=== PATIENT | female | born 1945 | race Caucasian/White ===

== ENCOUNTER 2019-01-05 12:11 | Emergency (ER) | payer MEDICARE, OTHER ==
[2019-01-05] MEDS ORDERED: Acetaminophen 500 MG TAB ONE (12:42)
[2019-01-05 13:02] LABS: #Basophils 0.1 thou/uL (0.0-0.2); #Lymphocytes 1.6 thou/uL (1.20-3.40); #Monocytes 0.7 thou/uL (0.11-0.59); %Basophils 0.7 % (0.0-1.0); %Eosinophils 0.4 % (0.0-10.0); %Lymphocytes 17.3 % (21.0-51.0); %Monocytes 7.1 % (0.0-10.0); %Neutrophils 74.6 % (42.0-75.0); Hemoglobin 12.1 g/dL (12.0-16.0); Mean Corpuscular HGB CONC 32.8 g/dL (32.0-36.0); Mean Corpuscular Hemoglobin 30.9 pg (27.0-31.0); Mean Corpuscular Volume 94.3 fL (78.0-98.0); Mean Platelet Volume 8.7 fL (7.4-10.4); Platelet Count 197 thou/uL (130-400); White Blood Cell (WBC) Count 9.3 thou/uL (4.8-10.8)
--- NOTE | 2019-01-05 13:13 | ULT ---
ULTRASOUND DOPPLER DUPLEX VENOUS RIGHT LOWER EXTREMITY: DATE: 01/05/2019 HISTORY: 73-year-old female with right lower extremity pain TECHNIQUE: Grayscale, color-flow, and spectral analysis, of major veins of right lower extremity. FINDINGS: There is demonstration of blood flow with normal compressibility, of the right common femoral, profun da femoral, greater saphenous, femoral, popliteal, and posterior tibial, veins. IMPRESSION: Negative. No deep venous thrombosis of right lower extremity.
[2019-01-05 13:16] LABS: ALT (SGPT) 20 U/L (8-55); AST (SGOT) 17 U/L (5-34); Alkaline Phosphatase 46 U/L (40-110); Anion Gap 14 mmol/L (10-20); BUN (Urea Nitrogen) 19 mg/dL (9.8-20.1); Bilirubin, Total 0.4 mg/dL (0.2-1.2); Calc. Creatinine Clearance 0 mL/min (70-130); Calcium 9.2 mg/dL (7.8-10.44); Carbon Dioxide 24 mmol/L (23-31); Chloride 107 mmol/L (98-107); Estimated GFR-MDRD 70; Globulin 2.4 g/dL (2.4-3.5); Glucose 159 mg/dL (83-110); Lipase 25 U/L (8-78); Potassium 4.3 mmol/L (3.5-5.1); Protein, Total 6.4 g/dL (6.0-8.3); Sodium 141 mmol/L (136-145)
[2019-01-05] MEDS ORDERED: Ketorolac Tromethamine 30 MG/ML VIAL ONE (14:13)
[2019-01-05 14:17] LABS: Bilirubin Negative (Negative); Blood, Urine Negative (Negative); Clarity Clear (Clear); Glucose, Urine (Dipstick) Negative (Negative); Leukocyte Negative (Negative); Nitrite Negative (Negative); Protein, Urine (Dipstick) Negative (Neg-Trace); Urobilinogen 0.2 mg/dL (Less than 2)
--- NOTE | 2019-01-05 15:38 | CT ---
CT PELVIS PERFORMED WITH IV CONTRAST ENHANCEMENT: Date: 01/05/19 HISTORY: Right lower quadrant abdomen and inguinal pain, pain to right hip, with constant right hip pain. Pain also in inner thigh region. FINDINGS: Partially visualized cyst is seen involving the lower pole of the left kidney. Appendix region is unr emarkable. A definite appendix is not identified. No inflammatory change in this region. No signs of any pelvic lymphadenopathy or mass. No free fluid. There are arthritic changes of both hips. Pelvic ring is intact. No signs of any insufficiency type f ractures. No soft tissue abnormalities in the region of the right hip. IMPRESSION: No acute findings of the pelvis. POS: [facility]
== END 2019-01-05 14:38 | disposition home or self-care (01) ==
LOC: SCSER 12:11
DX: M25.551 Pain in right hip (principal)
CPT/HCPCS: 36415; 72193; 80053; 81003; 83690; 85025; 96374; J1885

== ENCOUNTER 2019-01-12 08:57 | Inpatient (IN) | payer MEDICARE, OTHER ==
--- NOTE | 2019-01-12 09:38 | RAD ---
XR Hip Rt 2-3 View HISTORY: Right hip pain FINDINGS: No fracture or dislocation is identified. Mild degenerative changes are present.
[2019-01-12] MEDS ORDERED: Lorazepam 2 MG/ML VIAL ONE (10:22)
[2019-01-12] MEDS ORDERED: Fentanyl 100 MCG/2 ML VIAL ONE (10:22)
[2019-01-12 10:54] LABS: #Basophils 0.1 thou/uL (0.0-0.2); #Eosinphils 0.1 thou/uL (0.0-0.7); #Lymphocytes 1.8 thou/uL (1.20-3.40); %Basophils 0.8 % (0.0-1.0); %Eosinophils 1.4 % (0.0-10.0); %Lymphocytes 17.6 % (21.0-51.0); %Monocytes 9.8 % (0.0-10.0); %Neutrophils 70.5 % (42.0-75.0); Hemoglobin 13.8 g/dL (12.0-16.0); Mean Corpuscular HGB CONC 34.3 g/dL (32.0-36.0); Mean Corpuscular Hemoglobin 32.1 pg (27.0-31.0); Mean Corpuscular Volume 93.7 fL (78.0-98.0); Mean Platelet Volume 7.6 fL (7.4-10.4); Platelet Count 225 thou/uL (130-400); RBC Distribution Width 12.5 % (11.5-14.5); Red Blood Cell (RBC) Count 4.31 mill/uL (4.20-5.40); White Blood Cell (WBC) Count 9.9 thou/uL (4.8-10.8)
--- NOTE | 2019-01-12 11:00 | CT ---
CT lumbar spine noncontrast: DATE: 01/12/2019 HISTORY: 73-year-old female with low back pain and nontraumatic right lumbar radiculopathy. COMPARISON: None FINDINGS: There is an approximately 4 x 3.5 x 3.5 cm left renal lower pole cyst. No mass, edema, or hematoma in the perivertebral spaces. Vertebral body heights are maintained. For the purposes of this report, the level with bilaterally sm all, accessory ribs will be designated as L1, such that the last lumbar-type vertebra will be designated as L5. Mild left lateral convexly of curvature. T12-L1: Normal. L1-2: Normal. L2-3: Disc space maintained. Mild diffuse disc bulge plus superimposed small central disc protrusion which indents the thecal sac. No high-grade central spinal canal stenosis. Mild thecal sac stenosis. No significant neural foraminal stenosis. No high-grade facet DJD. L3-4: Moderate to severe disc space narrowing. Endplate sclerosis. Right-sided disc space narrowing w ith numerous tiny right-sided subcortical lucencies. Broad-based disc-osteophytic bar complex indents the ventral aspect of thecal sac. Mild to moderate calcified ligamentum flavum. Mild bilatera l facet DJD. Mild right neural foraminal stenosis. No left neural foraminal stenosis. Mild central spinal canal stenosis. Mild to moderate thecal sac stenosis. L4-5: Moderate-severe bilateral facet DJD causes grade 1 anterolisthesis of L4 on L5. Mild diffuse di sc bulge. Mild to moderate bilateral neural foraminal stenosis. Moderate ligamentum flavum thickening with calcification. Severe central spinal canal stenosis and severe thecal sac stenosis. H igh-grade lateral recess stenosis bilaterally. L5-S1: Disc space maintained. Moderate to severe bilateral facet DJD. In addition to a a broad-based central and bilateral paracentral moderately shallow disc herniation, there is a right lateral focal disc extrusion with superior migration of the extruded disc material up to the pedicle level of L5. This extruded disc fragment measures approximately approximately 9 x 6 x 11 mm. Along its coarse, it compresses and laterally displaces the right L5 nerve root. The broad-based disc herniatio n abuts and possibly posteriorly slightly displaces the bilateral S1 nerve roots. No high-grade central stenosis. Mild to moderate bilateral neural foraminal stenosis. There is fat stranding consis tent with edema in the right neural foramen, around the exiting right L5 nerve root there. IMPRESSION: 1. At L5-S1 there is a moderately large right paracentral-lateral extruded disc herniation with super ior migration of the extruded disc material, impinging on the right L5 nerve root along several centimeters of its course. 2. Grade 1 spondylolisthesis at L4-5 due to high-grade bilateral facet osteoarthrosis at that level. 3. Lumbar spondylosis, with high-grade degenerative disc disease at L3-4 and L4-5; and high-grade fac et osteoarthrosis at L4-5 and L5-S1. 4. Severe central spinal canal stenosis at L4-5.
[2019-01-12] MEDS ORDERED: Bisacodyl 5 MG TAB PO PRN (11:23)
[2019-01-12] MEDS ORDERED: Senokot S 8.6-50 MG TAB PO PRN (11:23)
[2019-01-12] MEDS ORDERED: Acetaminophen 325 MG TAB PO PRN (11:23)
[2019-01-12 14:08] VITALS: BMI 22.7
[2019-01-12] MEDS: Morphine 4 MG/ML VIAL SLOW IVP PRN ×2 (15:10→20:28)
[2019-01-12] MEDS: Sodium Chloride 0.9% 1,000 ML IV SCH (15:12)
--- NOTE | 2019-01-12 17:09 | HP ---
CHIEF COMPLAINT: Right-sided leg pain. HISTORY OF PRESENT ILLNESS: The patient is a 73-year-old female with no significant past medical history, who presents to the hospital with pain to her right groin radiating down her right leg. The patient is really drowsy right now from all the pain medication, most of the history was obtained from the son-in-law. I also spoke with the patient's daughter on the phone. Apparently, the patient recently moved from out of critical access hospital to [place], [place]. The patient's son-in-law states that the patient was moving some boxes, he did not think they were heavy boxes, about 17 days ago, started having significant pain to her lower back radiating down her leg. The patient initially took the hydrocodone that she had from previous prescriptions. He states that the pain did not improve at all. Later on, the patient did go to a chiropractor to see if that would help with the pain after some adjustments. However, according to the son-in-law, the pain got worse. After conversing with the son-in-law and the patient's daughter, the patient has been, it appears to be, having foot drop. They explained it to the point that the patient has been flopping her right foot around. Also, her pain has gotten so severe to the point that she is unable to stand or walk or sit. They did present to the [place] [facility] about a few days ago. At this time, they were given some pain medication and also a pelvic CT was done. The pelvic CT did not show any abnormalities, and there were no abnormalities of the right hip either. PAST MEDICAL HISTORY: As I mentioned, none. PAST SURGICAL HISTORY: She has had a cosmetic surgery including a tummy tuck, breast reduction, and she has also had and hysterectomy. SOCIAL HISTORY: She denies any alcohol use, drug use, smoking history. She is a full code. Lives with her daughter. REVIEW OF SYSTEMS: All negative except for the ones mentioned above in the HPI. PHYSICAL EXAMINATION: VITAL SIGNS: Her temperature is 98.2, respirations 16, blood pressure 136/63, 68 pulse, 94% on room air. GENERAL: She is awake, alert, and oriented x3. She is drowsy, but easily arousable. CV: S1 and S2 present. No murmurs, rubs, or gallops. ABDOMEN: Soft and nontender. Bowel sounds are present x2. EXTREMITIES: No edema. Pedal pulses are present x2. NEUROLOGIC: She has limited mobility when raising her right foot off the bed compared to her left. Again, I am not able to do a full neuro exam since she is very drowsy. Her dorsiflexion and plantar flexion are weak on the right side compared to the left side. Her sensation is intact. I was unable to ambulate the patient given the fact that she was very drowsy. SKIN: No cuts, lesions, or bruises noted. LABORATORY RESULTS: As of the following; WBCs of 9.9, hemoglobin of 13.8, hematocrit of 40.4, platelets of 225. Chemistry; sodium of 141, potassium of 4.3, BUN of 19, creatinine 0.80. Her troponin was negative. She did have a lumbar CT-spine, which indicated that she had L5-S1 moderately large right paracentral lateral extruded disk herniation with superior margins of the extruded disk material impinging on the right left L5 nerve root along the several centimeters of its course. She also has severe central canal stenosis of the L4-L5. ASSESSMENT AND PLAN: The patient is a 73-year-old female who presents to the hospital with pain that has progressively gotten worse and she has been having some foot drop going on for the past 10 days. 1. Left leg pain, most likely secondary this could be from radiculopathy. Her CT scan appears concerning. We will get Neurosurgery to evaluate her. The patient may require an MRI for further evaluation. I am unable to ambulate the patient given the fact that she is very drowsy in the ER due to pain medications. We will keep her n.p.o. for now until she is evaluated by Neurosurgery. Also, we will put SCDs for DVT prophylaxis. I will start her on some pain medication and we will go from there. Job ID: [id number]
--- NOTE | 2019-01-12 19:33 | MRI ---
MRI LUMBAR SPINE NONCONTRAST: DATE: 01/12/2019 HISTORY: 73-year-old female with low back pain, right lumbar radiculopathy, including right foot drop. COMPARISON: no prior MRI FINDINGS: On the sagittal images, there is diffuse low abnormal T1 hypointense bone marrow signal and heterogen eously hyperintense signal on the STIR sequence, and involving the majority of the S2 sacral body, extending into the right S2 sacral ala. In retrospect, on the CT, this has a heterogeneously patchy a nd lacelike sclerotic pattern, without destruction of cortical surface. Vertebral body heights are maintained. For the purposes of this report, the level with bilaterally sm all, accessory ribs will be designated as L1, such that the last lumbar-type vertebra will be designated as L5. Mild left lateral convexly of curvature. . T12-L1:Normal L1-2:Normal L2-3: Disc space maintained. Mild diffuse disc bulge plus superimposed small central disc protrusion which indents the thecal sac. No high-grade central spinal canal stenosis. No significant neural foraminal stenosis. No high-grade facet DJD. L3-4:Moderate to severe disc space narrowing. Endplate sclerosis. Right-sided disc space narrowing wi th numerous tiny right-sided subcortical lucencies. Broad-based disc-osteophytic bar complex indents the ventral aspect of thecal sac. Mild bilateral facet DJD. No high-grade neural foraminal st enosis. No high-grade central spinal canal stenosis. L4-5:Severe bilateral facet DJD (with bilateral facet joint effusions) causes grade 1 anterolisthesis of L4 on L5. Mild diffuse disc bulge. No significant right neural foraminal stenosis. Mild to moderate left neural foraminal stenosis. Distortion of spinal canal and thecal sac into trefoil confi guration. Moderate to severe central spinal canal stenosis. L5-S1:Disc space maintained. Severe bilateral facet DJD (with bilateral facet joint effusions. The ad dition to a shallow broad-based central and bilateral paracentral disc herniation, there is a right lateral focal disc extrusion with superior migration of the extruded disc material up to the pedicle level of L5, compressing and laterally displacing the right L5 nerve root along its course. Mild edema in the right neural foramen around the exiting right L5 nerve root. Moderate right neural cristiano inal stenosis. Mild to moderate left neural foraminal stenosis. Mild central stenosis. IMPRESSION: 1) osseous lesion involving the majority of the volume of the S2 sacral body extending to the right S 1 ala. This could represent neoplastic process, such as metastasis, although that is not necessarily the only possibility. Recommend further evaluation with dedicated MRI of the sacrum with and without contrast. Also recommend nuclear medicine whole body bone scan to search for other lesions elsewhere in the skeleton, which may aid in the diagnosis. 2) at L5-S1 there is a moderately large right paracentral-lateral extruded disc herniation with super ior migration of the extruded disc fragment, impinging on the right L5 nerve root along its course. 3) grade 1 spondylolisthesis at L4-5 due to severe bilateral osteoarthrosis at that level. 4) moderately severe central spinal canal stenosis at L4-5. 5) severe bilateral facet osteoarthrosis at L4-5 and L5-S1.
[2019-01-12] MEDS: Senokot S 8.6-50 MG TAB PO SCH (20:28)
[2019-01-13] MEDS: Morphine 4 MG/ML VIAL SLOW IVP PRN ×3 (01:02→10:16)
--- NOTE | 2019-01-13 03:16 | CON ---
DATE OF CONSULTATION: HISTORY OF PRESENT ILLNESS: Ms. Alan is a 73-year-old female who was brought into the emergency department this morning for right-sided radicular pain. She states that the pain started approximately 17 days ago. She saw a chiropractor and states that things got worse. After several days of this worsening radiating pain, she decided to come to the emergency department. The patient describes pain starting in the low back, radiating down the back of her right leg, the lateral lower leg, and into the top of her foot. She has numbness and tingling along this distribution. She also has weakness due to pain in the right leg, most significant in dorsiflexion and EHL on the right leg. The patient denies any symptoms on the left. The patient denies any bowel or bladder dysfunction. She states that normally she is able to walk/hike multiple miles and she has been unable to walk around very well, has noticed a footdrop on the right. Neurosurgery was consulted following MRI of the lumbar spine which shows significant disk herniation between L5 and S1 on the right. There are some degenerative changes as well. REVIEW OF SYSTEMS: A 10-point review of systems is completed, is negative other than stated in the above HPI. PAST MEDICAL HISTORY: No past medical history. PAST SURGICAL HISTORY: Breast reduction, tummy tuck, wrist surgery, , and hysterectomy. SOCIAL HISTORY: The patient lives with daughter. Denies alcohol, drug use, and no smoking history. ALLERGIES: PENICILLIN, SULFA, TORADOL. CURRENT MEDICATIONS: 1. Celebrex. 2. Crestor. 3. Premarin. PHYSICAL EXAMINATION: VITAL SIGNS: Temperature 97.6, heart rate 70, respirations 16, O2 saturations 100% on room air, blood pressure 145/76. CONSTITUTIONAL: The patient is alert and oriented. She is uncomfortable appearing, but nontoxic. HEENT. Head is normocephalic and atraumatic. Pupils are equal, round, and reactive to light. Extraocular movements are intact. Hearing is intact. Moist mucous membranes. RESPIRATIONS: Normal work of breathing on room air. Symmetric chest rise. EXTREMITIES: 5/5 bilateral strength in deltoids, biceps, triceps, community relations liaison strength. Lower extremities; 5/5 bilateral strength in hip flexion, extension, knee flexion, extension, decreased 3+/5 dorsiflexion, EHL on the right and 4/5 in plantar flexion on the right. NEUROLOGIC: The patient is awake, alert, oriented to person, place, and time. She has decreased sensation along the L5 distribution on the right leg compared to the left. Her speech is spontaneous and fluent, currently has normal fund of knowledge. She does have some decreased sensation along with weakness in the right lower extremity. IMAGING: MRI of the lumbar spine, there is a moderate to large disk, L5-S1 with superior migration compression at L5 nerve root. There is a grade 1 spondylolisthesis at L4-L5 and some moderate stenosis. There is also an osseous lesion involving the majority of the volume of the S2 sacral body extending into the right S1 ala. There is recommendation for further evaluation with sacral MRI with and without contrast. Consider bone scan as well. ASSESSMENT AND PLAN: Ms. Alan is a 73-year-old female who appears to be younger than her stated age. She has a 17-day onset of progressive right radicular lower leg pain, numbness, and tingling. She does have a disk on the right at L5-S1. There is also concern for a sacral lesion that warrants further workup along with a bone scan. MRI of the sacrum with and without contrast is recommended. From a neurosurgical standpoint, Ms. Alan has a disk, we are offering surgery or conservative measures given that she has not had any bowel or bladder dysfunction. Conservative measures would be reasonable, to consider pain management, physical therapy with or without rehab from the hospital. I spoke with the patient and her daughter and they are going to discuss these options. The soon we would be able to do surgery would be Saturday. If there are any further questions, please contact Neurosurgery. Job ID: [id number]
[2019-01-13 05:59] LABS: #Basophils 0.1 thou/uL (0.0-0.2); #Eosinphils 0.3 thou/uL (0.0-0.7); #Lymphocytes 2.2 thou/uL (1.20-3.40); #Monocytes 0.9 thou/uL (0.11-0.59); #Neutrophils 6.8 thou/uL (1.40-6.50); %Basophils 0.7 % (0.0-1.0); %Eosinophils 2.6 % (0.0-10.0); %Lymphocytes 21.3 % (21.0-51.0); %Monocytes 8.5 % (0.0-10.0); Hemoglobin 13.6 g/dL (12.0-16.0); Mean Corpuscular Hemoglobin 30.5 pg (27.0-31.0); Mean Corpuscular Volume 95.3 fL (78.0-98.0); Mean Platelet Volume 7.5 fL (7.4-10.4); Platelet Count 228 thou/uL (130-400); RBC Distribution Width 12.5 % (11.5-14.5); Red Blood Cell (RBC) Count 4.46 mill/uL (4.20-5.40); White Blood Cell (WBC) Count 10.2 thou/uL (4.8-10.8)
[2019-01-13 06:24] LABS: Anion Gap 16 mmol/L (10-20); BUN (Urea Nitrogen) 12 mg/dL (9.8-20.1); Calc. Creatinine Clearance 61 mL/min (70-130); Calcium 8.9 mg/dL (7.8-10.44); Carbon Dioxide 20 mmol/L (23-31); Chloride 106 mmol/L (98-107); Estimated GFR-MDRD 74; Glucose 150 mg/dL (83-110); Potassium 4.2 mmol/L (3.5-5.1); Sodium 138 mmol/L (136-145)
--- NOTE | 2019-01-13 09:14 | PDOC.HOSPP ---
- Subjective Encounter Date: 01/13/19 Encounter Time: 09:08 Subjective: ebilitating pain R buttocks agggravated by standing/sitting - Objective Vital Signs & Weight: Vital Signs (12 hours) Temp Pulse Resp BP Pulse Ox 01/13/19 07:42 97.7 F 65 16 136/77 95 01/13/19 04:00 97.8 F 66 19 144/78 H 93 L 01/13/19 00:00 98.0 F 70 19 141/76 H 95 Weight Weight 132 lb 5 oz I&O: 01/12/19 01/13/19 01/14/19 06:59 06:59 06:59 Intake Total 120 Balance 120 Result Diagrams: 01/13/19 05:39 01/13/19 05:39 Hospitalist ROS - Medication Medications: Active Medications Generic Name Dose Route Start Last Admin Trade Name Freq PRN Reason Stop Dose Admin Sodium Chloride 1,000 mls @ 50 mls/hr 01/12/19 12:45 01/12/19 15:12 Normal Saline 0.9% IV 1,000 mls .Q20H NO Administration Morphine Sulfate 4 mg 01/12/19 12:23 01/13/19 05:15 Morphine SLOW IVP 4 mg Q4H PRN Administration Moderate Pain (4-6) Senna/Docusate Sodium 1 tab 01/12/19 21:00 01/12/19 20:28 Senokot S PO 1 tab BID NO Administration - Exam Neck: no JVD Heart: RRR, no murmur Respiratory: CTAB, no wheezes Gastrointestinal: soft, normal bowel sounds Extremities: no edema Hosp A/P (1) Lumbar radiculopathy, acute Code(s): M54.16 - RADICULOPATHY, LUMBAR REGION Status: Acute (2) Sacral lesion Code(s): M53.3 - SACROCOCCYGEAL DISORDERS, NOT ELSEWHERE CLASSIFIED Status: Acute (3) GERD (gastroesophageal reflux disease) Code(s): K21.9 - GASTRO-ESOPHAGEAL REFLUX DISEASE WITHOUT ESOPHAGITIS Status: Acute Qualifiers: Esophagitis presence: esophagitis presence not specified Qualified Code(s) : K21.9 - Gastro-esophageal reflux disease without esophagitis - Plan bone scan, MRI with/without contrat sacrum cont iv morphine start po meds
[2019-01-13] MEDS: Senokot S 8.6-50 MG TAB PO SCH ×2 (10:17→20:34)
[2019-01-13] MEDS: Sodium Chloride 0.9% 1,000 ML IV SCH (10:17)
[2019-01-13] MEDS ORDERED: predniSONE 50 MG TAB PO SCH (10:30)
[2019-01-13] MEDS ORDERED: Lidocaine 2% MPF 10 ML AMP (For Epidural Use) ONE (14:41)
[2019-01-13] MEDS ORDERED: Bupivacaine 0.25% 10 ML VIAL ONE (14:41)
[2019-01-13] MEDS ORDERED: Iopamidol-M 300 61% 15 ML VIAL ONE (14:41)
--- NOTE | 2019-01-13 16:31 | NM ---
NUCLEAR MEDICINE BONE SCAN WHOLE BODY (Skeletal scintigraphy) NUCLEAR MEDICINE BONE SCAN SPECT-CT: DATE: 01/13/2019 HISTORY: 73-year-old female with osseous lesion involving S2 body and right ala. TECHNIQUE: IV injection of technetium 99m-[id number]: 31.5 mCi 3 hour delayed whole body skeletal scintigraphy in anterior and posterior views. SPECT of the pelvis performed in [address] for anatomical localization. SPECT-CT fusion images evaluated. FINDINGS: There is strong uptake involving the lesion of the S2 vertebral body encroaching upon the right S2 sa cral ala, corresponding to the lesion found on MRI and CT in this location. Other patchy areas of increased uptake involve high-grade degenerative disc disease and high-grade fa cet DJD in the mid and lower lumbar spine. There is a small focus of increased uptake at the left cervical spine, probably representing cervical facet DJD. There are no other foci of increased uptake in the rest of the skeleton that are highly suspicious fo r additional metastatic lesions. IMPRESSION: Increased uptake involving the bone lesion of S2 body and right S2 ala: Evidence for bone neoplasm, s uch as metastasis. This lesion is not amenable to image guided percutaneous biopsy.
[2019-01-13] MEDS: HYDROcodone/Acetaminophen 5/325 mg Tablet PO PRN (21:05)
[2019-01-14] MEDS: HYDROcodone/Acetaminophen 5/325 mg Tablet PO PRN (03:30)
[2019-01-14] MEDS: Sodium Chloride 0.9% 1,000 ML IV SCH (05:52)
[2019-01-14] MEDS: predniSONE 50 MG TAB PO SCH (08:02)
[2019-01-14] MEDS: Senokot S 8.6-50 MG TAB PO SCH ×2 (08:03→20:47)
[2019-01-14] MEDS: traMADol HCl 50 MG TAB PO PRN ×3 (08:51→20:46)
[2019-01-14] MEDS: Cyclobenzaprine 10 MG TAB PO PRN ×3 (08:52→21:24)
--- NOTE | 2019-01-14 09:24 | PRG ---
DATE OF SERVICE: 01/14/2019 I saw Ms. Alan in the hospital room this morning. I reviewed MR imaging of the lumbar spine records and documentation and I agreed with the documentation of Cony Sue PA-C dated 01/11/2019. Briefly, Therese Alan is a 73-year-old woman with an intervertebral disk herniation causing L5 radiculopathy on the right side. She will be a good candidate for microdiskectomy, but wants to try nonsurgical treatment first. She has had one epidural steroid injection and this gave her temporary relief, but the pain seems to be coming back this morning. Different analgesics, nonsteroidal anti-inflammatory drugs, oral steroids, gabapentin, pregabalin could be adjusted for oral pain relief. Physical therapy can be started. I discussed microdiskectomy with her and she seems interested if the nonsurgical treatment fails. I did tell her that surgery, on average, returns strength faster than nonsurgical therapy. She is going to use the next 24 hours to make up her mind and wants to speak with her medical team about lesions in her bone and with Dr. Lowe about her pain management strategy. If she is not satisfied with her pain control, she may like to have surgery sooner rather than later. I will check on her tomorrow morning. I spent 25 minutes in the room speaking with her, her daughter via the phone, and her son who all have input into her care. Job ID: [id number]
--- NOTE | 2019-01-14 10:02 | MRI ---
MRI PELVIS WITH AND WITHOUT CONTRAST: HISTORY: Sacral mass. COMPARISON: CT examination of the pelvis from 01/05/2019. FINDINGS: Involving the sacrum, the right S2 sacral ala and S2 sacral body is a T1 hypointense and T2 hyperinte nse mass which abuts the superior margin of the right S2 neural foramen and the inferior margin of th e right S1 neural foramen without significant cortical breakthrough. This does not extend to the left sacral ala. This does not cross the rudimentary S1/S2 disk. The mass does not have significant anterior or posterior cortical breakthrough. No presacral edema. T here appears to be some peripheral sclerosis around this mass with mild increased T2 hyperintense sig nal with some flecks of low T2 signal. The remainder of the pelvis has normal enhancement. The piriformis muscles are without abnormal enhan cement. IMPRESSION: Mass involving the sacrum, right S2 sacral ala and sacral body, not crossing the S1-S2 or S2-S3 rudim entary disks, which is well defined and does not extend beyond the cortex. No soft tissue component. Internal matrix. Favor that this could reflect an area of fibrous dysplasia, less likely a low grade chondral sarcoma. POS: [facility]
--- NOTE | 2019-01-14 12:14 | PDOC.HOSPP ---
- Subjective Encounter Date: 01/14/19 Encounter Time: 12:11 Subjective: still having significant pain - Objective Vital Signs & Weight: Vital Signs (12 hours) Temp Pulse Resp BP Pulse Ox 01/14/19 08:07 98.1 F 82 18 154/84 H 99 Weight Admit Weight 132 lb Weight 132 lb 5 oz I&O: 01/13/19 01/14/19 01/15/19 06:59 06:59 06:59 Intake Total 120 600 300 Balance 120 600 300 Result Diagrams: 01/13/19 05:39 01/13/19 05:39 Hospitalist ROS - Medication Medications: Active Medications Generic Name Dose Route Start Last Admin Trade Name Freq PRN Reason Stop Dose Admin Hydrocodone Bitart/Acetaminophen 1 tab 01/12/19 11:23 01/14/19 03:30 [place] 5/325 PO 1 tab Q4H PRN Administration Moderate Pain (4-6) Cyclobenzaprine HCl 10 mg 01/14/19 08:29 01/14/19 08:52 Flexeril PO 10 mg TID PRN Administration Muscle Spasm Sodium Chloride 1,000 mls @ 50 mls/hr 01/12/19 12:45 01/14/19 05:52 Normal Saline 0.9% IV Not Given .Q20H NO Prednisone 50 mg 01/14/19 08:00 01/14/19 08:02 Prednisone PO 50 mg QAM-WM NO Administration Senna/Docusate Sodium 1 tab 01/12/19 21:00 01/14/19 08:03 Senokot S PO 1 tab BID NO Administration Sodium Chloride 10 ml 01/14/19 09:00 01/14/19 09:09 Flush - Normal Saline IVF Not Given Q12HR NO Tramadol HCl 50 mg 01/14/19 08:28 01/14/19 08:51 Ultram PO 50 mg Q4H PRN Administration Pain - Exam Neck: no JVD Heart: RRR, no murmur, no gallops, no rubs, normal peripheral pulses Respiratory: CTAB, no wheezes Gastrointestinal: soft, normal bowel sounds Extremities: no edema Hosp A/P (1) Lumbar radiculopathy, acute Code(s): M54.16 - RADICULOPATHY, LUMBAR REGION Status: Acute (2) Sacral lesion Code(s): M53.3 - SACROCOCCYGEAL DISORDERS, NOT ELSEWHERE CLASSIFIED Status: Acute (3) GERD (gastroesophageal reflux disease) Code(s): K21.9 - GASTRO-ESOPHAGEAL REFLUX DISEASE WITHOUT ESOPHAGITIS Status: Acute Qualifiers: Esophagitis presence: esophagitis presence not specified Qualified Code(s) : K21.9 - Gastro-esophageal reflux disease without esophagitis - Plan sacral mass needs BX patient considering surgical option for acute radiculopathy cont morphine iv
[2019-01-14] MEDS: Morphine 2 MG/ML SYRINGE SLOW IVP PRN ×2 (12:33→22:18)
[2019-01-15] MEDS: Morphine 2 MG/ML SYRINGE SLOW IVP PRN ×2 (02:56→08:44)
[2019-01-15] MEDS: traMADol HCl 50 MG TAB PO PRN ×4 (03:00→21:58)
[2019-01-15] MEDS: Sodium Chloride 0.9% 1,000 ML IV SCH ×2 (03:05→12:25)
[2019-01-15] MEDS: Cyclobenzaprine 10 MG TAB PO PRN (04:51)
--- NOTE | 2019-01-15 07:34 | PRG ---
DATE OF SERVICE: 01/15/2019 I stopped by Ms. Alan's room again this morning. She had her daughter on speaker phone while I was talking to her. We spent about 20 minutes speaking about her situation. Ms. Vaughn pain is difficult to control here in the hospital, and she has decided to have surgical intervention for her intervertebral disk herniation and L5 radiculopathy. However, there is a lesion in the S2 segment of the sacrum that is unusual and it is bright on her bone scan. I have been asked to consider biopsy during the same anesthetic. For one major reason, I think that that is a bad idea. Two rare diagnoses in the sacrum (chordoma and chondrosarcoma) present a diagnostic and surgical challenge. If at some point she considers en bloc resection of the sacral lesion, then it is very important to plan the trajectory of the biopsy so that all the skin, muscle, soft tissue along the biopsy tract can be excised along with the en bloc resection of the tumor. For this reason, getting a biopsy at the site where a multispecialty team including Orthopedics, Plastic Surgery, Neurosurgery, and Pelvic Surgery, then approach the tumor from multiple angles at once and remove it, is important. Further, outer trocar needs to be used for needle biopsy so that seeding along the tract of the needle is diminished, and most teams will also byron the tract with some markings that would later be used to plan their surgical approach. Thankfully, these 2 diagnoses are rare and it is much more likely that this is a metabolically active hemangioma or something more benign. Nonetheless, getting her to a facility that can arrange her definitive care should she need it and allowing them to plan the biopsy is the recommendation. The family and patient have chosen [facility] for that. In the meantime, we will plan a surgical intervention for her intervertebral disk disease tomorrow afternoon. Informed Consent: I discussed indications, risks, benefits, and alternatives to laminectomy and microdiskectomy for right L5 radiculopathy. The risks I discussed included, but were not limited to, bleeding, infection, CSF leak, nerve damage, paralysis, incontinence, wheelchair dependence, cardiopulmonary complications of anesthesia, major blood vessel injury and . She understands the risks and wants to proceed. We will make her n.p.o. We will make sure she has coags and a platelet count. We will have her sign a consent. We will order antibiotics for the operating room, and we will have the Pain Management Service come visit with her. Job ID: [id number]
[2019-01-15] MEDS: predniSONE 50 MG TAB PO SCH (08:41)
[2019-01-15] MEDS: Gabapentin 300 MG CAP PO SCH ×3 (08:42→21:55)
[2019-01-15] MEDS: HYDROcodone/Acetaminophen 5/325 mg Tablet PO PRN ×3 (08:43→21:55)
[2019-01-15] MEDS: Senokot S 8.6-50 MG TAB PO SCH ×2 (09:39→21:56)
--- NOTE | 2019-01-15 10:21 | PDOC.HOSPP ---
- Subjective Encounter Date: 01/15/19 Encounter Time: 10:19 Subjective: pain persists - Objective Vital Signs & Weight: Vital Signs (12 hours) Temp Pulse Resp BP Pulse Ox 01/15/19 08:00 98 01/15/19 07:21 98.5 F 79 18 131/76 98 Weight Admit Weight 132 lb Weight 132 lb 5 oz I&O: 01/14/19 01/15/19 01/16/19 06:59 06:59 06:59 Intake Total 600 900 Balance 600 900 Result Diagrams: 01/13/19 05:39 01/13/19 05:39 Hospitalist ROS - Medication Medications: Active Medications Generic Name Dose Route Start Last Admin Trade Name Freq PRN Reason Stop Dose Admin Hydrocodone Bitart/Acetaminophen 1 tab 01/12/19 11:23 01/15/19 08:43 [place] 5/325 PO 1 tab Q4H PRN Administration Moderate Pain (4-6) Cyclobenzaprine HCl 10 mg 01/14/19 08:29 01/15/19 04:51 Flexeril PO 10 mg TID PRN Administration Muscle Spasm Gabapentin 300 mg 01/15/19 09:00 01/15/19 08:42 Neurontin PO 300 mg TID NO Administration Sodium Chloride 1,000 mls @ 50 mls/hr 01/12/19 12:45 01/15/19 03:05 Normal Saline 0.9% IV 1,000 mls .Q20H NO Administration Morphine Sulfate 2 mg 01/14/19 12:10 01/15/19 08:44 Morphine SLOW IVP 2 mg Q2H PRN Administration Pain Prednisone 50 mg 01/14/19 08:00 01/15/19 08:41 Prednisone PO 50 mg QAM-WM NO Administration Senna/Docusate Sodium 1 tab 01/12/19 21:00 01/15/19 09:39 Senokot S PO Not Given BID NO Sodium Chloride 10 ml 01/14/19 09:00 01/15/19 09:38 Flush - Normal Saline IVF Not Given Q12HR NO Tramadol HCl 50 mg 01/14/19 08:28 01/15/19 08:42 Ultram PO 50 mg Q4H PRN Administration Pain - Exam General Appearance: awake alert Neck: no JVD Heart: RRR, no murmur Respiratory: CTAB Gastrointestinal: soft, normal bowel sounds Extremities: no edema Hosp A/P (1) Lumbar radiculopathy, acute Code(s): M54.16 - RADICULOPATHY, LUMBAR REGION Status: Acute (2) Sacral lesion Code(s): M53.3 - SACROCOCCYGEAL DISORDERS, NOT ELSEWHERE CLASSIFIED Status: Acute (3) GERD (gastroesophageal reflux disease) Code(s): K21.9 - GASTRO-ESOPHAGEAL REFLUX DISEASE WITHOUT ESOPHAGITIS Status: Chronic Qualifiers: Esophagitis presence: esophagitis presence not specified Qualified Code(s) : K21.9 - Gastro-esophageal reflux disease without esophagitis - Plan increase morphine iv dose surgery tomorrow NS recomends MDA for sacral Bx
[2019-01-15] MEDS ORDERED: Morphine 4 MG/ML VIAL SLOW IVP PRN (10:29)
[2019-01-15 11:39] LABS: Hemoglobin 12.2 g/dL (12.0-16.0); Platelet Count 222 thou/uL (130-400)
[2019-01-15 11:43] LABS: PTT 23.1 SEC (22.9-36.1); Prothrombin Time 12.9 SEC (12.0-14.7)
--- NOTE | 2019-01-15 21:23 | OP ---
DATE OF PROCEDURE: 01/13/2019 PROCEDURE PERFORMED: Right L5 transforaminal epidural steroid injection under fluoroscopic guidance. DESCRIPTION OF PROCEDURE: Informed consent: The patient was advised of the procedure and informed of potential complications including pain, infection, drug reaction, and bleeding. The patient denied recent infection or fever, or use of anticoagulation medications. Prep: The patient was placed in a prone position. Fluoroscopic guidance was used to identify the appropriate spinal level. ChloraPrep was used topically for antisepsis. Anesthesia was with 1% lidocaine locally. Location is right L5 foramen. Procedure: A 25-gauge Chiba needle was passed to the foramen using oblique approach. A lateral view was checked to determine the needle depth and advanced to superior posterior aspect of the foramen. AP projection confirmed placement just below the mid pedicle line. Isovue-M 200 2 mL was injected and confirmed proper placement. Depo-Medrol 80 mg, 1 mL of 0.25% Marcaine and preservative-free normal saline for a total volume of 3 mL was injected easily. Postprocedure, the patient was monitored. Following the procedure, vital signs, and neurologic status were assessed. The patient tolerated the procedure well without any complications. Job ID: [id number]
[2019-01-16] MEDS: HYDROcodone/Acetaminophen 5/325 mg Tablet PO PRN ×2 (01:27→11:03)
[2019-01-16] MEDS: traMADol HCl 50 MG TAB PO PRN (01:29)
[2019-01-16] MEDS: Gabapentin 300 MG CAP PO SCH ×3 (08:14→20:56)
[2019-01-16] MEDS: Senokot S 8.6-50 MG TAB PO SCH ×2 (08:15→20:56)
[2019-01-16] MEDS: predniSONE 50 MG TAB PO SCH (08:15)
[2019-01-16] MEDS ORDERED: PHENYLEPHRINE-NS 100 MCG/ML 10 ML SYRINGE ONE (10:23)
[2019-01-16] MEDS ORDERED: PROPOFOL 200 MG/20 ML VIAL ONE (10:23)
[2019-01-16] MEDS ORDERED: ePHEDrine/0.9% NaCl/PF SYRINGE 50 mg/10 ml ONE (10:23)
[2019-01-16] MEDS ORDERED: Lidocaine 1% PF 5 ML VIAL ONE (10:23)
[2019-01-16] MEDS ORDERED: Rocuronium Bromide 10 MG/ML (10ML VIAL) ONE (10:23)
[2019-01-16] MEDS ORDERED: Ondansetron PF 4 MG/2 ML Vial ONE (10:23)
[2019-01-16] MEDS ORDERED: Clindamycin/D5W 900 MG in Premix Bag 1 BAG IVPB SCH (11:00)
[2019-01-16] MEDS ORDERED: Bupivacaine PF 0.5% 30 ML VIAL ONE (12:36)
[2019-01-16] MEDS ORDERED: Thrombin 5000 UNITS/5 ML VIAL ONE (12:36)
[2019-01-16] MEDS ORDERED: Sodium Chloride 0.9% 10 ML ONE (12:36)
[2019-01-16] MEDS ORDERED: Fentanyl 100 MCG/2 ML VIAL ONE ×3 (13:12→15:51)
[2019-01-16] MEDS ORDERED: Levofloxacin 500 mg/D5W 100 ml Premix Bag ONE (13:56)
[2019-01-16] MEDS ORDERED: Mag-Al 1200 mg/1200 mg/30 ML UDCUP PO PRN (15:21)
[2019-01-16] MEDS ORDERED: Ondansetron PF 4 MG/2 ML Vial IVP PRN (15:21)
[2019-01-16] MEDS ORDERED: Promethazine HCl 25 MG/ML VIAL IM PRN ×2 (15:21→15:41)
[2019-01-16] MEDS ORDERED: tiZANidine HCl 4 MG TAB PO PRN (15:21)
[2019-01-16] MEDS ORDERED: diphenhydrAMINE 25 MG CAP PO PRN (15:21)
[2019-01-16] MEDS ORDERED: Morphine 2 MG/ML SYRINGE SLOW IVP PRN (15:21)
[2019-01-16] MEDS ORDERED: Bisacodyl 10 MG SUPP PR PRN (15:21)
[2019-01-16] MEDS ORDERED: Acetaminophen/Codeine 30-300mg Tablet PO PRN ×2 (15:21)
[2019-01-16] MEDS ORDERED: Promethazine 25 MG TAB PO PRN (15:21)
[2019-01-16] MEDS ORDERED: Milk Of Magnesia 30 ML UDCUP PO PRN (15:21)
[2019-01-16] MEDS ORDERED: diphenhydrAMINE 50 MG/ML VIAL IVP PRN (15:21)
[2019-01-16] MEDS ORDERED: Ondansetron HCl/PF 4 MG/2 ML Vial IVP PRN (15:41)
[2019-01-16] MEDS ORDERED: PACU-Morphine 4MG/ML VIAL SLOW IVP PRN (15:41)
[2019-01-16] MEDS ORDERED: Promethazine HCl 25 MG/ML VIAL SLOW IVP PRN (15:41)
[2019-01-16] MEDS ORDERED: HYDROmorphone 2 MG/ML VIAL SLOW IVP PRN (15:41)
[2019-01-16] MEDS: Sodium Chloride 0.9% 1,000 ML IV SCH (16:36)
[2019-01-16] MEDS: Clindamycin/D5W 900 MG in Premix Bag 1 BAG IVPB SCH (20:54)
--- NOTE | 2019-01-16 21:46 | OP ---
DATE OF PROCEDURE: 01/16/2019 PHLEBOTOMY SUPPORT TECH: Cony Sue PA-C PREOPERATIVE INDICATION: Treat pain and prevent neurological deterioration. PREOPERATIVE DIAGNOSIS: Lumbar intervertebral disk herniation with L5 radiculopathy, right side. POSTOPERATIVE DIAGNOSIS: Lumbar intervertebral disk herniation with L5 radiculopathy, right side. OPERATIVE PROCEDURE: Right-sided L5-S1 hemilaminectomy, medial facetectomy, foraminotomy, microdiskectomy of a superiorly herniated L5-S1 disk under the L5 nerve root. PREOPERATIVE MEDICATION: Ancef 2 g IV. DRAIN NUMBER: Zero. DRAIN TYPE: None. DESCRIPTION OF PROCEDURE: The patient was brought to the operating room. General endotracheal anesthesia was induced. The patient was carefully positioned on the operating table with the chest and hips supported by gel-filled chest rolls. A lateral fluoro radiograph was used to plan our incision. The lumbar skin was sterilely prepped and draped. We opened a midline incision with a 10 blade knife and controlled bleeding with bipolar cautery. We used monopolar cautery to dissect through subcutaneous tissues to the thoracodorsal fascia. We incised the fascia right of the midline and reflected the paraspinal muscles off the spinous process and lamina of L5 and S1 on the right side. A lateral fluoro radiograph confirmed the levels upon which we were operating. We then used a Kerrison rongeur to fashion a hemilaminectomy on the right at L5-S1. We brought the operating microscope into the field. Under microscopic magnification using microsurgical techniques, we carefully removed the yellow ligament in a piecemeal fashion. We performed a medial facetectomy until we saw the intervertebral disk at L5-S1 and we carried our partial hemilaminectomy superiorly until we saw the L5 nerve root in its lateral recess at L4-L5 and out the foramen. We gently retracted the thecal sac medially and under the common thecal sac and the L5 nerve root, we found an intervertebral disk herniation with a loose fragment of disk directly under the L5 nerve root. Using a blunt hook, we swept this disk material out from under the nerve root and came out in 2 large fragments. The nerve root was then freely mobile. A Izquierdo ball probe could pass through the L4-L5 lateral recess and out the L5 foramen without impingement. In similar fashion, the S1 nerve root was without stretch or impingement either. There was protruding, but not herniated disk at the interspace and the rest of the ligament seemed intact except for a small opening in its superior segment through which the disk had herniated. No more disk seemed to loose or ready to herniate. We irrigated copiously with bacitracin irrigation. We infused local anesthetic in the paraspinal muscles and we closed the wound in anatomical layers. This is a clean case, no contamination. Job ID: [id number]
[2019-01-17] MEDS: Clindamycin/D5W 900 MG in Premix Bag 1 BAG IVPB SCH (03:28)
--- NOTE | 2019-01-17 07:56 | PRG ---
DATE OF SERVICE: 01/17/2019 Ms. Alan is one day out from microdiskectomy on the right at L5-S1. The excruciating, radiating radicular pain down the right leg has gone. She has had a twinge or two in similar distribution, but just in the calf and short-lived. Her back is sore. When she got out of bed in the night, she had to get on the bedside commode as quickly as possible due to some leaking of urine. : Overnight, the vitals have been stable. She has good neurological function in her lower extremities. The footdrop has improved, but is not back to normal. I encouraged Ms. Alan to get out of bed and move frequently. She can use the assistance of nursing and physical therapy to ambulate. The farther she gets out from anesthesia and the less pain medicine she needs, the more her bladder will function normally. Once she is independent with getting in and out of bed, when she is controlling her bladder, eating, dressing, and doing all her activities of daily living safely, then she can be discharged, that could be as early as this afternoon or tomorrow. Job ID: [id number] [facility]
[2019-01-17] MEDS: predniSONE 50 MG TAB PO SCH (08:02)
[2019-01-17] MEDS: traMADol HCl 50 MG TAB PO PRN ×3 (08:02→22:27)
[2019-01-17] MEDS: Gabapentin 300 MG CAP PO SCH ×3 (08:02→19:59)
[2019-01-17] MEDS: Senokot S 8.6-50 MG TAB PO SCH ×2 (08:02→19:59)
[2019-01-17] MEDS: HYDROcodone/Acetaminophen 5/325 mg Tablet PO PRN (10:24)
[2019-01-17 11:21] LABS: Bacteria/HPF 4+ HPF (None Seen); Bilirubin Negative (Negative); Blood, Urine Negative (Negative); Clarity Clear (Clear); Glucose, Urine (Dipstick) Normal (Negative); Leukocyte Negative Leu/uL (Negative); Nitrite Negative (Negative); Protein, Urine (Dipstick) Negative (Neg-Trace); RBC/HPF 0-3 HPF (0-3); Urobilinogen Normal mg/dL (Less than 2); WBC/HPF 0-3 HPF (0-3)
[2019-01-17 11:56] LABS: Urine Culture Reflex No No
[2019-01-17] MEDS: Sodium Chloride 0.9% 1,000 ML IV SCH (12:51)
--- NOTE | 2019-01-17 14:04 | PDOC.HOSPP ---
- Subjective Encounter Date: 01/16/19 Encounter Time: 10:15 Subjective: pt up in bed denies any pain. - Objective Vital Signs & Weight: Vital Signs (12 hours) Temp Pulse Resp BP Pulse Ox 01/17/19 11:30 98.4 F 73 18 129/73 94 L 01/17/19 07:24 97.9 F 72 16 143/81 H 94 L 01/17/19 05:22 98.0 F 69 19 143/79 H 98 Weight Admit Weight 132 lb Weight 132 lb 5 oz I&O: 01/16/19 01/17/19 01/18/19 06:59 06:59 06:59 Intake Total 1080 800 Output Total 400 Balance 1080 400 Result Diagrams: 01/15/19 11:28 01/13/19 05:39 Hospitalist ROS - Review of Systems Respiratory: denies: cough, dry, shortness of breath, hemoptysis, SOB with excertion, pleuritic pain, sputum, wheezing, other Cardiovascular: denies: chest pain, palpitations, orthopnea, paroxysmal noc. dyspnea, edema, light headedness, other Gastrointestinal: denies: nausea, vomiting, abdominal pain, diarrhea, constipation, melena, hematochezia, other - Medication Medications: Active Medications Generic Name Dose Route Start Last Admin Trade Name Freq PRN Reason Stop Dose Admin Hydrocodone Bitart/Acetaminophen 1 tab 01/12/19 11:23 01/17/19 10:24 [place] 5/325 PO 1 tab Q4H PRN Administration Moderate Pain (4-6) Cyclobenzaprine HCl 10 mg 01/14/19 08:29 01/15/19 04:51 Flexeril PO 10 mg TID PRN Administration Muscle Spasm Gabapentin 300 mg 01/15/19 09:00 01/17/19 08:02 Neurontin PO 300 mg TID NO Administration Sodium Chloride 1,000 mls @ 50 mls/hr 01/12/19 12:45 01/17/19 12:51 Normal Saline 0.9% IV Not Given .Q20H NO Prednisone 50 mg 01/14/19 08:00 01/17/19 08:02 Prednisone PO 50 mg QAM-WM NO Administration Senna/Docusate Sodium 1 tab 01/12/19 21:00 01/17/19 08:02 Senokot S PO 1 tab BID NO Administration Sodium Chloride 10 ml 01/14/19 09:00 01/17/19 08:45 Flush - Normal Saline IVF Not Given Q12HR [facility] Tramadol HCl 50 mg 01/14/19 08:28 01/17/19 08:02 Ultram PO 50 mg Q4H PRN Administration Pain - Exam Neck: negative: supple, symmetric, no JVD, no thyromegaly, no lymphadenopathy, no carotid bruit, JVD Heart: negative: RRR, no murmur, no gallops, no rubs, normal peripheral pulses, irregular, diminshed peripheral pulses, murmur present, II/IV, III/IV Respiratory: negative: CTAB, no wheezes, no rales, no ronchi, normal chest expansion, no tachypnea, normal percussion, rales, rhonchi, tachypneic, wheezes Hosp A/P (1) Lumbar radiculopathy, acute Code(s): M54.16 - RADICULOPATHY, LUMBAR REGION Status: Acute (2) Sacral lesion Code(s): M53.3 - SACROCOCCYGEAL DISORDERS, NOT ELSEWHERE CLASSIFIED Status: Acute (3) GERD (gastroesophageal reflux disease) Code(s): K21.9 - GASTRO-ESOPHAGEAL REFLUX DISEASE WITHOUT ESOPHAGITIS Status: Chronic Qualifiers: Esophagitis presence: esophagitis presence not specified Qualified Code(s) : K21.9 - Gastro-esophageal reflux disease without esophagitis - Plan pt up in bed has pain. will monitor. she had some urinary incontinence. will monitor.
--- NOTE | 2019-01-17 15:06 | PDOC.HOSPP ---
- Subjective Encounter Date: 01/17/19 Encounter Time: 11:30 Subjective: pt up in bed feels much better - Objective Vital Signs & Weight: Vital Signs (12 hours) Temp Pulse Resp BP Pulse Ox 01/17/19 11:30 98.4 F 73 18 129/73 94 L 01/17/19 07:24 97.9 F 72 16 143/81 H 94 L 01/17/19 05:22 98.0 F 69 19 143/79 H 98 Weight Admit Weight 132 lb Weight 132 lb 5 oz I&O: 01/16/19 01/17/19 01/18/19 06:59 06:59 06:59 Intake Total 1080 800 Output Total 400 Balance 1080 400 Result Diagrams: 01/15/19 11:28 01/13/19 05:39 Hospitalist ROS - Review of Systems Cardiovascular: denies: chest pain, palpitations, orthopnea, paroxysmal noc. dyspnea, edema, light headedness, other Gastrointestinal: denies: nausea, vomiting, abdominal pain, diarrhea, constipation, melena, hematochezia, other Genitourinary: reports: dysuria. denies: frequency, incontinence, hematuria, retention, other - Medication Medications: Active Medications Generic Name Dose Route Start Last Admin Trade Name Freq PRN Reason Stop Dose Admin Hydrocodone Bitart/Acetaminophen 1 tab 01/12/19 11:23 01/17/19 10:24 [place] 5/325 PO 1 tab Q4H PRN Administration Moderate Pain (4-6) Cyclobenzaprine HCl 10 mg 01/14/19 08:29 01/15/19 04:51 Flexeril PO 10 mg TID PRN Administration Muscle Spasm Gabapentin 300 mg 01/15/19 09:00 01/17/19 08:02 Neurontin PO 300 mg TID NO Administration Sodium Chloride 1,000 mls @ 50 mls/hr 01/12/19 12:45 01/17/19 12:51 Normal Saline 0.9% IV Not Given .Q20H NO Prednisone 50 mg 01/14/19 08:00 01/17/19 08:02 Prednisone PO 50 mg QAM-WM NO Administration Senna/Docusate Sodium 1 tab 01/12/19 21:00 01/17/19 08:02 Senokot S PO 1 tab BID NO Administration Sodium Chloride 10 ml 01/14/19 09:00 01/17/19 08:45 Flush - Normal Saline IVF Not Given Q12HR NO Tramadol HCl 50 mg 01/14/19 08:28 01/17/19 08:02 Ultram PO 50 mg Q4H PRN Administration Pain - Exam Neck: negative: supple, symmetric, no JVD, no thyromegaly, no lymphadenopathy, no carotid bruit, JVD Heart: negative: RRR, no murmur, no gallops, no rubs, normal peripheral pulses, irregular, diminshed peripheral pulses, murmur present, II/IV, III/IV Respiratory: negative: CTAB, no wheezes, no rales, no ronchi, normal chest expansion, no tachypnea, normal percussion, rales, rhonchi, tachypneic, wheezes Hosp A/P (1) Lumbar radiculopathy, acute Code(s): M54.16 - RADICULOPATHY, LUMBAR REGION Status: Acute (2) Sacral lesion Code(s): M53.3 - SACROCOCCYGEAL DISORDERS, NOT ELSEWHERE CLASSIFIED Status: Acute (3) GERD (gastroesophageal reflux disease) Code(s): K21.9 - GASTRO-ESOPHAGEAL REFLUX DISEASE WITHOUT ESOPHAGITIS Status: Chronic Qualifiers: Esophagitis presence: esophagitis presence not specified Qualified Code(s) : K21.9 - Gastro-esophageal reflux disease without esophagitis - Plan pt up in bed has pain. will monitor. she had some urinary incontinence. will monitor. 01/17 UA collected will send for micro. will add prophylactic abx.
[2019-01-18 07:35] VITALS: BP 114/65; TEMP 96.7
--- NOTE | 2019-01-18 08:15 | PRG ---
DATE OF SERVICE: 01/18/2019 Ms. Alan is 2 days out from microdiskectomy. The excruciating pain she had on the right leg before surgery is completely gone. She was up ambulating yesterday, bladder function has returned and she is happy with that. There is some area of numbness in her legs, but this will continue for some time, up to a year after surgery continues to shrink and then will plateau. Her motor function is good, but there is still a bit of a footdrop and she will need some physical therapy. Ms. Alan is anxious to go home and that can happen any time. If the medical team feels she needs empiric therapy for potential UTI, then a prescription can be given. Followup arrangements will be made in our office. Oral analgesics and muscle relaxants can be given. We went over activity restrictions, wound care and followup. Job ID: [id number]
[2019-01-18] MEDS: traMADol HCl 50 MG TAB PO PRN (08:51)
[2019-01-18] MEDS: Senokot S 8.6-50 MG TAB PO SCH (08:51)
[2019-01-18] MEDS: Gabapentin 300 MG CAP PO SCH ×2 (08:54→10:52)
[2019-01-18] MEDS: Sodium Chloride 0.9% 1,000 ML IV SCH (08:54)
[2019-01-18] MEDS: HYDROcodone/Acetaminophen 5/325 mg Tablet PO PRN (10:51)
--- NOTE | 2019-01-20 08:55 | PQF ---
JARAD BECERRIL Daryl GALVIN MD [id number] CLINICAL DOCUMENTATION CLARIFICATION FORM: POST DISCHARGE Addendum to original discharge summary date: ____ Late entry note date: __ DATE:01/20/2019 ATTN: Daryl GALVIN MD Please exercise your independent, professional judgment in responding to the clarification form. Clinical indicators are provided on the bottom of this form for your review Please check appropriate box(s) to clarify if the following diagnosis has been ruled in or ruled out:UTI [ ] Ruled in diagnosis [ ] Continue to treat [ ] Resolved [ ] Ruled out diagnosis [ ] Cannot rule out diagnosis [ ] Other diagnosis [ ] Unable to determine For continuity of documentation, please document condition throughout progress notes and discharge summary. Thank You. CLINICAL INDICATORS - SIGNS / SYMPTOMS / LABS She had some urinary incontinence- Documented in Hospitalist progress note on by Caitlin Kwon 01/17 UA collected will send for micro-Documented in Hospitalist progress note on 01/17 by Caitlin Kwon Ms Becerril is anxious to go home and that can happen any time.If the medical tearm fells ahe needs empiric therapy for potential UTI,then a prescription can given-Documented in PN on 01/18 by Romeo Galvin Ur Squamous epith cells-4.6 A-Documented in Laboratory on Urine bacteria-4+ A-Documented in Laboratory on 01/17 RISK [employer] Microdiskectomy-Documented in OP note on 01/16 by Romeo Galvin TREATMENTS Will add prophylactic abx-Documented in Hospitalist progress note on 01/17 by Caitlin Kwon Clindamycin 900 mg IV-Documented in medication snapshot Vancomycin 1gm -Documented in medication snapshot [employer]board In[employer] Winform Viewer(This form is maintained as a part of the permanent medical record) 2014 [employer], [employer] All Rights Reserved [place] [not provided] MTDD
== END 2019-01-18 15:57 | disposition home or self-care (01) | DRG 520 ==
LOC: ERS 08:57 → T4-B 12:16 → OBSVTOIN 01-13 12:34
PROVIDERS: ADMIT Internal Medicine; ATTEND Internal Medicine
PROC: 3E0233Z Introduction of Anti-inflammatory into Muscle, Percutaneous Approach (ICD-10-PCS; 2019-01-13)
PROC: 0SB40ZZ Excision of Lumbosacral Disc, Open Approach (ICD-10-PCS; principal; 2019-01-16)
PROC: 01NB0ZZ Release Lumbar Nerve, Open Approach (ICD-10-PCS; 2019-01-16)
PROC: 01NR0ZZ Release Sacral Nerve, Open Approach (ICD-10-PCS; 2019-01-16)
DX: M51.17 Intervertebral disc disorders with radiculopathy, lumbosacral region (principal); K21.9 Gastro-esophageal reflux disease without esophagitis; M53.3 Sacrococcygeal disorders, not elsewhere classified; Z90.710 Acquired absence of both cervix and uterus; Z88.0 Allergy status to penicillin; Z88.6 Allergy status to analgesic agent; Z88.2 Allergy status to sulfonamides
CPT/HCPCS: 36415; 72131; 72148; 72197; 76000; 78320; 80048; 81001; 85014; 85018; 85025; 85049; 85610; 85652; 85730; 86140; 87086; 96372; A9503; J1040; J1956; J2001; J2060; J2270; J2405; J2704; J3010; J3370; J3490; J7512; Q9967; S0020

== ENCOUNTER 2019-04-21 09:25 | Outpatient (CLI) | payer MEDICARE, OTHER ==
--- NOTE | 2019-04-21 11:02 | RAD ---
LUMBAR SPINE 4 VIEWS: Date: 04/21/2019 HISTORY: Lumbar radiculopathy. Lateral view obtained with neutral, flexion, and extension. FINDINGS: In the AP projection, slight curvature to the left with apex at L3-4. There are moderate degenerative changes. Degenerative disc changes are prominent at L3-4 and L4-5. Grade I anterolisthesis at L4-5 and at L5-S1 with loss of disc space and posterior facet hypertrophy. No evidence of spondylolysis. The anterolisthesis at both L4-5 and L5-S1 reduce slightly with extension. IMPRESSION: Degenerative change in the lumbar spine as described with anterolisthesis at L4-5 and L5-S1. POS: LEONARDO
== END 2019-04-21 09:26 | disposition home or self-care (01) ==
LOC: SCSRAD 09:25
PROVIDERS: ATTEND Neurological Surgery
DX: M47.26 Other spondylosis with radiculopathy, lumbar region (principal); M43.16 Spondylolisthesis, lumbar region; M43.17 Spondylolisthesis, lumbosacral region
CPT/HCPCS: 72120

== ENCOUNTER 2020-06-21 14:26 | Outpatient (CLI) | payer MEDICARE, OTHER ==
[~2020-06-21 14:26] MED LIST: Magnevist 469MG/ML 20 ML VIAL ONE
== END 2020-06-21 14:27 | disposition home or self-care (01) ==
LOC: TBSIIMAG 14:26
PROVIDERS: ATTEND Neurological Surgery
DX: M47.26 Other spondylosis with radiculopathy, lumbar region (principal); M43.16 Spondylolisthesis, lumbar region; M51.16 Intervertebral disc disorders with radiculopathy, lumbar region; M48.061 Spinal stenosis, lumbar region without neurogenic claudication
CPT/HCPCS: 72100; 72110; 72158; A9579